=== PATIENT | male | born 1980 | race Caucasian/White ===

== ENCOUNTER 2017-02-22 20:34 | Emergency (ER) | payer MEDICAID ==
[2017-02-22] MEDS ORDERED: Albuterol/Ipratropium 3.0-0.5 MG/3 ML Neb Soln NEB ONE (20:47)
[2017-02-22] MEDS ORDERED: Sodium Chloride 0.9% 1,000 ML IV ONE (20:47)
[2017-02-22] MEDS ORDERED: Ondansetron 4 MG/2 ML SDV IVPUSH STA (20:47)
--- NOTE | 2017-02-22 20:58 | EDM.PDOC ---
ED HPI GENERAL MEDICAL PROBLEM - General Chief Complaint: General Stated Complaint: sob Time Seen by Provider: 02/22/17 20:40 Source of Information: Reports: Patient History Limitations: Reports: No limitations - History of Present Illness INITIAL COMMENTS - FREE TEXT/NARRATIVE: This is a 36 year old male that presents to the [facility] tonight. Patient has had several ER visits lately to the [place] ER for similar complaints. The patient reports that for the past 3 days he has had been short of breath with productive cough, chest pain, shortness of breath, wheezing, subjective fever. He reports that while on the way here to the ER he started having dry heaving, vomiting x1, nausea. The patient reports that he does smoke, he reports trying to quit and taking Chantix, but also still smoking with it. The patient is alert and oriented and does not appear to be in distress. The patient has his at bedside. Onset Date: 02/19/17 Duration: Day(s): (3), Getting worse Severity: mild Improves with: Reports: None Worsens with: Reports: Breathing Associated Symptoms: Reports: chest pain, cough, cough w sputum, diaphoresis, fever/chills, headaches, loss of appetite, malaise, nausea/vomiting, shortness of breath. Denies: confusion, rash, seizure, syncope, weakness Left Chest Pain Score (Numeric/FACES): 5 - Related Data Allergies Allergy/AdvReac Type Severity Reaction Status Date / Time venom-honey bee Allergy Severe Anaphylactic Verified 01/18/17 18:33 [bee venom (honey bee)] Shock Sulfa (Sulfonamide Allergy Intermediate Blurred Verified 01/18/17 18:33 Antibiotics) Vision Home Meds: Home Meds Metoclopramide HCl [Reglan] 10 mg PO TIDAC PRN #30 tablet 04/04/16 [Rx] Amitriptyline [Elavil] 10 mg PO BEDTIME PRN 07/30/16 [History] Albuterol [Proair HFA] 01/16/17 [History] Fluticasone Propionate [Flovent HFA 44 MCG] 01/16/17 [History] Pantoprazole [Protonix] 40 mg PO BEDTIME 01/16/17 [History] Past Medical History - Past Health History Medical/Surgical History: Denies Medical/Surgical History HEENT History: Reports: Sinusitis Cardiovascular History: Reports: None Respiratory History: Reports: Asthma Gastrointestinal History: Reports: Gastritis, GERD, Pancreatitis, Other (see below) Other Gastrointestinal History: Hx of ulcers. Genitourinary History: Reports: None Musculoskeletal History: Reports: Back pain, chronic Neurological History: Reports: Concussion Psychiatric History: Reports: ADHD, Depression Endocrine/Metabolic History: Reports: Obesity/BMI 30+ Hematologic History: Reports: None Immunologic History: Reports: None Oncologic (Cancer) History: Reports: None Dermatologic History: Reports: Other (see below) Other Dermatologic History: ECCHYMOSIS TO L) FT - Infectious Disease History Infectious Disease History: Reports: Chicken pox, Influenza - Past Surgical History Head Surgeries/Procedures: Reports: None HEENT Surgical History: Reports: None Cardiovascular Surgical History: Reports: None Respiratory Surgical History: Reports: None GI Surgical History: Reports: Colonoscopy, EGD Neurological Surgical History: Reports: None Musculoskeletal Surgical History: Reports: Other (see below) Other Musculoskeletal Surgeries/Procedures:: Left ankle surgery. Social & Family History - Family History Family Medical History: Noncontributory - Tobacco Use Smoking Status *Q: Current Every Day Smoker Years of Tobacco use: 30 Packs/Tins Daily: 1 Used Tobacco, but Quit: No Second Hand Smoke Exposure: Yes - Caffeine Use Caffeine Use: Reports: Coffee, Soda, Tea - Alcohol Use Days Per Week of Alcohol Use: 2 Number of Drinks Per Day: 5 Total Drinks Per Week: 10 - Recreational Drug Use Recreational Drug Use: Yes Drug Use in Last 12 Months: Yes Recreational Drug Type: Reports: Marijuana/Hashish Recreational Drug Use Frequency: Weekly Recreational Drug Last Use: t-2 ED ROS GENERAL - Review of Systems Review Of Systems: See Below Constitutional: Reports: fever, chills, malaise, diaphoresis, decreased appetite HEENT: Reports: Rhinitis, Sinus problem Respiratory: Reports: Shortness of Breath, Wheezing, Pleuritic Chest Pain, Cough , Sputum Cardiovascular: Reports: Chest pain, Lightheadedness Endocrine: Reports: no symptoms GI/Abdominal: Reports: Abdominal pain, Diarrhea, Decreased appetite, Nausea, Vomiting : Reports: no symptoms Musculoskeletal: Reports: muscle pain (body aches) Skin: Reports: no symptoms Neurological: Reports: No Symptoms Psychiatric: Reports: No symptoms Hematologic/Lymphatic: Reports: no symptoms Immunologic: Reports: no symptoms ED EXAM, GENERAL - Physical Exam Exam: See Below Exam Limited By: No limitations General Appearance: alert, WD/WN, no apparent distress, anxious Eye Exam: bilateral eye: normal inspection, PERRL Ears: normal external exam, normal canal, hearing grossly normal, normal TMs Ear Exam: bilateral ear: auricle normal, canal normal, TM normal Nose: normal inspection, normal mucosa, no blood Throat/Mouth: Normal lips, Normal teeth, Normal gums, Normal voice, No airway compromise, Other (lesions to back of throat. ) Head: atraumatic, normocephalic Neck: normal inspection, supple, non-tender, full range of motion Respiratory/Chest: no respiratory distress, normal breath sounds, no accessory muscle use, chest non-tender, wheezing. No: pleural rub, accessory muscle use, retractions, splinting, prolonged expiration Cardiovascular: normal peripheral pulses, regular rate, rhythm, no edema, no gallop, no JVD, no murmur, no rub Peripheral Pulses: 2+: radial (L), radial (R), posterior tibial (L), posterior tibial (R), dorsalis pedis (L), dorsalis pedis (R) GI/Abdominal: normal bowel sounds, soft, no organomegaly, no distention, no mass , tender (mildly diffuse) Back Exam: normal inspection, full range of motion. No: CVA tenderness (L), CVA tenderness (R) Extremities: normal inspection, normal range of motion, non-tender, no pedal edema, normal capillary refill Neurological: alert, oriented, normal cognition Psychiatric: anxious Skin Exam: Warm, Dry, Intact, No rash, Pallor Lymphatic: no adenopathy EKG INTERPRETATION EKG Date: 02/22/17 Time: 21:12 Rhythm: other (sinus tach) Rate (beats/min): 100 [place]: normal P-wave: present QRS: normal ST-T: normal QT: normal Comparison: NA - no prior EKG Course - Vital Signs Last Recorded V/S: Last Vital Signs Temp 99.7 F 02/22/17 22:02 Pulse 89 02/22/17 22:02 Resp 18 02/22/17 22:02 BP 142/82 H 02/22/17 22:02 Pulse Ox 96 02/22/17 22:02 - Orders/Labs/Meds Orders: Active Orders 24 hr Category Date Time Status RT Aerosol Therapy [RC] ASDIRECTED Care 02/22/17 20:47 Active Chest 2V [CR] Stat Exams 02/22/17 20:46 Taken CULTURE BLOOD [BC] Stat Lab 02/22/17 21:14 Received CULTURE BLOOD [BC] Stat Lab 02/22/17 21:14 Results HEPATITIS PANEL, ACUTE [REF] Stat Lab 02/22/17 21:14 Received HIV 1,2 AB/AG COMBO SCREEN [REF] Stat Lab 02/22/17 21:14 Received Blood Culture x2 Reflex Set [OM.PC] Stat Oth 02/22/17 20:45 Ordered Labs: Laboratory Tests 02/22/17 02/22/17 02/22/17 Range/Units 20:40 20:40 21:14 WBC (5.0-10.0) 10^3/uL RBC (4.50-6.00) 10^6/uL Hgb (14.0-18.0) g/dL Hct (40.0-54.0) % MCV (82.0-94.0) fL MCH (27.0-32.0) pg MCHC (33.0-38.0) g/dL RDW Coeff of Pati (11.0-15.0) % Plt Count (150-400) 10^3/uL Neut % (Auto) (35-85) % Lymph % (Auto) (10-55) % [place] % (Auto) (0-16) % Eos % (Auto) (0-5) % Baso % (Auto) (0-3) % Neut # (Auto) (1.80-7.00) 10^3/uL Lymph # (Auto) (1.00-4.80) 10^3/uL [place] # (Auto) (0.00-0.80) 10^3/uL Eos # (Auto) (0.00-0.45) 10^3/uL Baso # (Auto) 10^3/uL Sodium 139 (136-145) mEq/L Potassium 3.4 L (3.5-5.0) mEq/L Chloride 102 (98-106) mEq/L Carbon Dioxide 20 L (21-32) mmol/L BUN 12 (7-18) mg/dL Creatinine 1.0 (0.7-1.3) mg/dL Est Cr Clr Drug Dosing TNP Estimated GFR (MDRD) > 60 (>=60) mL/min Glucose 127 H (75-99) mg/dL Lactic Acid (0.4-2.0) mmol/L Calcium 9.5 (8.4-10.1) mg/dL Total Bilirubin 0.9 (0.0-1.0) mg/dL AST 14 L (15-37) U/L ALT 15 (12-78) U/L Alkaline Phosphatase 85 (46-116) U/L Troponin I < 0.017 (0.00-0.06) ng/mL C-Reactive Protein 3.6 H (0.2-0.8) mg/dL Total Protein 8.7 H (6.4-8.2) g/dL Albumin 4.3 (3.4-5.0) g/dL Urine Color Yellow (YELLOW) Urine Appearance Clear (CLEAR) Urine pH 5.5 (4.5-8.0) Ur Specific [place] > 1.035 H (1.003-1.020) Urine Protein 100 H (NEGATIVE) mg/dL Urine Glucose (UA) Negative (NEGATIVE) mg/dL Urine Ketones Trace H (NEGATIVE) mg/dL Urine Occult Blood Negative (NEGATIVE) Urine Nitrite Negative (NEGATIVE) Urine Bilirubin Negative (NEGATIVE) Urine Urobilinogen 0.2 (0.2-1.0) EU/dL Ur Leukocyte Esterase Negative (NEGATIVE) Urine RBC Not seen (0-5) /HPF Urine WBC Not seen (0-5) /HPF Urine Opiates Screen Positive H (NEGATIVE) Ur Oxycodone Screen Negative (NEGATIVE) Urine Methadone Screen Negative (NEGATIVE) Ur Barbiturates Screen Negative (NEGATIVE) U Tricyclic Antidepress Positive H (NEGATIVE) Ur Phencyclidine Scrn Negative (NEGATIVE) Ur Amphetamine Screen Negative (NEGATIVE) U Methamphetamines Scrn Negative (NEGATIVE) Urine MDMA Screen Negative (NEGATIVE) U Benzodiazepines Scrn Negative (NEGATIVE) Urine Cocaine Screen Negative (NEGATIVE) U Marijuana (THC) Screen Positive H (NEGATIVE) 02/22/17 02/22/17 Range/Units 21:14 21:14 WBC 9.3 (5.0-10.0) 10^3/uL RBC 5.13 (4.50-6.00) 10^6/uL Hgb 16.5 (14.0-18.0) g/dL Hct 46.0 (40.0-54.0) % MCV 89.7 (82.0-94.0) fL MCH 32.2 H (27.0-32.0) pg MCHC 35.9 (33.0-38.0) g/dL RDW Coeff of Pati 12.1 (11.0-15.0) % Plt Count 385 (150-400) 10^3/uL Neut % (Auto) 69.8 (35-85) % Lymph % (Auto) 16.5 (10-55) % [place] % (Auto) 11.4 (0-16) % Eos % (Auto) 1.9 (0-5) % Baso % (Auto) 0.4 (0-3) % Neut # (Auto) 6.49 (1.80-7.00) 10^3/uL Lymph # (Auto) 1.53 (1.00-4.80) 10^3/uL [place] # (Auto) 1.06 H (0.00-0.80) 10^3/uL Eos # (Auto) 0.18 (0.00-0.45) 10^3/uL Baso # (Auto) 0.04 10^3/uL Sodium (136-145) mEq/L Potassium (3.5-5.0) mEq/L Chloride (98-106) mEq/L Carbon Dioxide (21-32) mmol/L BUN (7-18) mg/dL Creatinine (0.7-1.3) mg/dL Est Cr Clr Drug Dosing Estimated GFR (MDRD) (>=60) mL/min Glucose (75-99) mg/dL Lactic Acid 2.2 H (0.4-2.0) mmol/L Calcium (8.4-10.1) mg/dL Total Bilirubin (0.0-1.0) mg/dL AST (15-37) U/L ALT (12-78) U/L Alkaline Phosphatase (46-116) U/L Troponin I (0.00-0.06) ng/mL C-Reactive Protein (0.2-0.8) mg/dL Total Protein (6.4-8.2) g/dL Albumin (3.4-5.0) g/dL Urine Color (YELLOW) Urine Appearance (CLEAR) Urine pH (4.5-8.0) Ur Specific [place] (1.003-1.020) Urine Protein (NEGATIVE) mg/dL Urine Glucose (UA) (NEGATIVE) mg/dL Urine Ketones (NEGATIVE) mg/dL Urine Occult Blood (NEGATIVE) Urine Nitrite (NEGATIVE) Urine Bilirubin (NEGATIVE) Urine Urobilinogen (0.2-1.0) EU/dL Ur Leukocyte Esterase (NEGATIVE) Urine RBC (0-5) /HPF Urine WBC (0-5) /HPF Urine Opiates Screen (NEGATIVE) Ur Oxycodone Screen (NEGATIVE) Urine Methadone Screen (NEGATIVE) Ur Barbiturates Screen (NEGATIVE) U Tricyclic Antidepress (NEGATIVE) Ur Phencyclidine Scrn (NEGATIVE) Ur Amphetamine Screen (NEGATIVE) U Methamphetamines Scrn (NEGATIVE) Urine MDMA Screen (NEGATIVE) U Benzodiazepines Scrn (NEGATIVE) Urine Cocaine Screen (NEGATIVE) U Marijuana (THC) Screen (NEGATIVE) Meds: Medications Discontinued Medications Generic Name Dose Route Start Last Admin Trade Name Freq PRN Reason Stop Dose Admin Albuterol/Ipratropium 3 ml 02/22/17 20:47 02/22/17 21:16 Duoneb 3.0-0.5 Mg/3 Ml NEB 02/22/17 20:48 3 ml ONETIME ONE Administration Sodium Chloride 1,000 mls @ 1,000 mls/hr 02/22/17 20:47 02/22/17 21:16 Normal Saline IV 02/22/17 21:46 1,000 mls/hr .BOLUS ONE Administration Methylprednisolone Sodium Succinate 125 mg 02/22/17 21:15 02/22/17 21:18 Solu-Medrol IVPUSH 02/22/17 21:16 125 mg NOW STA Administration Metoclopramide HCl 10 mg 02/22/17 21:37 02/22/17 21:44 Reglan IVPUSH 02/22/17 21:38 10 mg ONETIME ONE Administration Ondansetron HCl 4 mg 02/22/17 20:47 02/22/17 21:16 Zofran IVPUSH 02/22/17 20:48 4 mg NOW STA Administration - Radiology Interpretation Free Text/Narrative:: CXR: Lungs clear, no infiltrates, no edema. - Re-Assessments/Exams Free Text/Narrative Re-Assessment/Exam: 04/23/17 22:01 Patient vomited x1 after zofran after drinking full cup of water. Had Reglan IV , no vomiting after that. This appears to be chronic. Will discharge. Stable. Departure - Departure Time of Disposition: 22:01 Disposition: Home, Self-Care 01 Condition: good Clinical Impression: Anxiety Vomiting Qualifiers: Vomiting type: bilious vomiting Nausea presence: with nausea Qualified Code(s) : R11.14 - Bilious vomiting Acute bronchitis Qualifiers: Bronchitis organism: unspecified organism Qualified Code(s): J20.9 - Acute bronchitis, unspecified Reactive airway disease with wheezing Qualifiers: Asthma severity: unspecified severity Asthma complication type: with acute exacerbation Qualified Code(s): J45.901 - Unspecified asthma with (acute) exacerbation Instructions: Shortness of Breath, [id number], Acute Bronchitis, [id number] Referrals: Provider,Unknown [Primary Care Provider] - Forms: ED Department Discharge Additional Instructions: Followup with your primary care provider Return to the ER for worsening of condition or any emergent concerns Increase fluids Take your Reglan at home as prescribed Followup with your specialist Cefdinir 300mg 1 pill twice a day for 10 days #20 no refill Prednisone 20mg 1 pill twice a day for 5 days #10 no refill Pro-air 90mcg 1-2 puffs every 4-6 hours as needed for shortness of breath Do not Smoke - My Orders Last 24 Hours: My Active Orders 02/22/17 20:45 Blood Culture x2 Reflex Set [OM.PC] Stat 02/22/17 20:46 Chest 2V [CR] Stat 02/22/17 20:47 RT Aerosol Therapy [RC] ASDIRECTED 02/22/17 21:14 CULTURE BLOOD [BC] Stat CULTURE BLOOD [BC] Stat HEPATITIS PANEL, ACUTE [REF] Stat HIV 1,2 AB/AG COMBO SCREEN [REF] Stat - Assessment/Plan Last 24 Hours: My Active Orders 02/22/17 20:45 Blood Culture x2 Reflex Set [OM.PC] Stat 02/22/17 20:46 Chest 2V [CR] Stat 02/22/17 20:47 RT Aerosol Therapy [RC] ASDIRECTED 02/22/17 21:14 CULTURE BLOOD [BC] Stat CULTURE BLOOD [BC] Stat HEPATITIS PANEL, ACUTE [REF] Stat HIV 1,2 AB/AG COMBO SCREEN [REF] Stat Plan: PLEASE SEE RN NOTE FOR PFSH.
[2017-02-22] MEDS ORDERED: methylPREDNISolone Sodium Succinate 125 MG/2 ML SDV IVPUSH STA (21:15)
[2017-02-22 21:28] LABS: CHLORIDE,CL 102 mEq/L (98-106); SODIUM,NA 139 mEq/L (136-145)
[2017-02-22] MEDS ORDERED: Metoclopramide 10 MG/2 ML SDV IVPUSH ONE (21:37)
[2017-02-22 22:05] VITALS: BP 142/82
[2017-02-22] MEDS ORDERED: Promethazine 25 MG in Sodium Chloride 0.9% 50 ML IV STA (22:08)
== END 2017-02-22 22:45 | disposition home or self-care (01) ==
LOC: CC.ED 20:34
DX: J20.9 Acute bronchitis, unspecified (principal); J45.901 Unspecified asthma with (acute) exacerbation; F41.9 Anxiety disorder, unspecified; R11.14 Bilious vomiting; K21.9 Gastro-esophageal reflux disease without esophagitis; F32.9 Major depressive disorder, single episode, unspecified; E66.9 Obesity, unspecified; Z68.30 Body mass index [BMI] 30.0-30.9, adult; F17.200 Nicotine dependence, unspecified, uncomplicated; F12.90 Cannabis use, unspecified, uncomplicated; Z91.030 Bee allergy status; Z88.2 Allergy status to sulfonamides; Z79.899 Other long term (current) drug therapy
CPT/HCPCS: 36415; 71020; 80053; 80074; 80305; 81001; 83605; 84484; 85025; 86140; 87040; 87389; 93005; J2405; J2550; J2765; J2930; J7030; J7050; 96361; 96365; 96375; 99285